=== PATIENT | female | born 1955 | race Caucasian/White ===

== ENCOUNTER 2017-02-07 11:43 | Day surgery (SDC) | payer BC ==
[~2017-02-07 11:43] MED LIST: Bupivacaine 0.25%/EPINEPHrine 1:200,000 10 ML SDV INJECT ONE; Bupivacaine 0.25%/EPINEPHrine 1:200,000 10 ML SDV ONE; Lactated Ringers 1,000 ML IV SCH; ceFAZolin 2 GM in Premix Bag 1 BAG IV ONE
[2017-02-07] MEDS ORDERED: Ondansetron 4 MG/2 ML SDV ONE (11:58)
[2017-02-07] MEDS ORDERED: Lidocaine 2% 5 ML SDV ONE (11:58)
[2017-02-07] MEDS ORDERED: Midazolam 1 MG/ML 2 ML SDV ONE (11:59)
[2017-02-07] MEDS ORDERED: Propofol 200 MG/20 ML SDV ONE (11:59)
[2017-02-07] MEDS ORDERED: fentaNYL 250 MCG/5 ML SDV ONE (11:59)
[2017-02-07] MEDS ORDERED: ceFAZolin 1 GM Vial ONE (12:03)
--- NOTE | 2017-02-07 12:05 | PCM.PREANE ---
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) Type of Anesthesia Reaction: Excessive Nausea/Vomiting Other Type of Anesthesia Reaction Comment: Reports SIck post knee procedure, otherwise no problems Transfusion History: No Prior Transfusion(s) - Review of Systems General: No Symptoms Pulmonary: No Symptoms Cardiovascular: No Symptoms Gastrointestinal: No symptoms Neurological: No Symptoms Other: Reports: None - Physical Assessment NPO Status Date: 02/06/17 O2 Sat by Pulse Oximetry: 97 Respiratory Rate: 16 Vital Signs: Last Vital Signs Temp 36.1 C 02/07/17 11:55 Pulse 66 02/07/17 11:55 Resp 16 02/07/17 11:55 BP 138/83 02/07/17 11:55 Pulse Ox 97 02/07/17 11:55 Height: 1.73 m Weight: 90.718 kg ASA Class: 2 Mental Status: Alert & Oriented x3 Dentition: Reports: Normal Dentition ROM/Head Extension: Full Lungs: Clear to auscultation, Normal respiratory effort Cardiovascular: Regular Rate, Regular Rhythm - Allergies Allergies/Adverse Reactions: Allergies Allergy/AdvReac Type Severity Reaction Status Date / Time No Known Allergies Allergy Verified 07/28/14 17:17 - Anesthesia Plan Pre-Op Medication Ordered: None - Acknowledgements Anesthesia Type Planned: General Anesthesia Pt an Appropriate Candidate for the Planned Anesthesia: Yes Alternatives and Risks of Anesthesia Discussed w Pt/Guardian: Yes Pt/Guardian Understands and Agrees with Anesthesia Plan: Yes PreAnesthesia Questionnaire HEENT History: Reports: Other (see below) Other HEENT History: wears glasses Cardiovascular History: Reports: High cholesterol Gastrointestinal History: Reports: Colon polyp 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: Musculoskeletal History: Reports: Arthritis Endocrine/Metabolic History: Reports: Hypothyroidism, Obesity/BMI 30+ - Past Surgical History Head Surgeries/Procedures: Reports: None GI Surgical History: Reports: Colonoscopy Musculoskeletal Surgical History: Reports: Knee replacement Other Musculoskeletal Surgeries/Procedures:: left knee replacement - SUBSTANCE USE Smoking Status *Q: Former Smoker Tobacco Use Within Last Twelve Months: No Days Per Week of Alcohol Use: 0 Recreational Drug Use History: No - HOME MEDS Home Medications: Home Meds FLUoxetine HCl [Fluoxetine HCl] 40 mg PO DAILY 07/28/14 [History] Levothyroxine Sodium [Synthroid] 75 mcg PO BRK 07/28/14 [History] atorvaSTATin Calcium [Atorvastatin Calcium] 1 tab PO DAILY 07/28/14 [History] Fish Oil/Corrigan-3 Fatty Acids [Fish Oil 1,000 MG] 1 tab PO DAILY 02/05/17 [ History] Tolterodine [Detrol LA 24 Hr] 4 mg PO DAILY 02/05/17 [History] Ubidecarenone [Coq-10] 200 mg PO DAILY 02/05/17 [History] - CURRENT (IN HOUSE) MEDS Current Meds: Current Medications Lactated Ringer's (Ringers, Lactated) 1,000 mls @ 125 mls/hr IV ASDIRECTED ANIL Last Admin: 02/07/17 11:57 Dose: 125 mls/hr Discontinued Medications Bupivacaine HCl/Epinephrine Bitart (Marcaine 0.25%/Epinephrine 1:200,000) 10 ml INJECT ONETIME ONE Stop: 02/07/17 11:01 Bupivacaine HCl/Epinephrine Bitart (Marcaine 0.25%/Epinephrine 1:200,000) Confirm Administered Dose 20 ml .ROUTE .STK-MED ONE Stop: 02/07/17 07:36 Fentanyl (Sublimaze) Confirm Administered Dose 250 mcg .ROUTE .STK-MED ONE Stop: 02/07/17 12:00 Cefazolin Sodium/Dextrose 2 gm (/ Premix) 50 mls @ 100 mls/hr IV ONETIME ONE Stop: 02/07/17 11:29 Lidocaine (Xylocaine-Mpf 2%) Confirm Administered Dose 5 ml .ROUTE .STK-MED ONE Stop: 02/07/17 11:59 Midazolam HCl (Versed 1 Mg/Ml) Confirm Administered Dose 2 mg .ROUTE .STK-MED ONE Stop: 02/07/17 12:00 Ondansetron HCl (Zofran) Confirm Administered Dose 4 mg .ROUTE .STK-MED ONE Stop: 02/07/17 11:59 Propofol (Diprivan 20 Ml) Confirm Administered Dose 200 mg .ROUTE .STK-MED ONE Stop: 02/07/17 12:00
[2017-02-07] MEDS ORDERED: Scopolamine 1.5 MG Transdermal Patch TRDERM PRN (12:57)
[2017-02-07] MEDS ORDERED: Scopolamine 1.5 MG Transdermal Patch ONE (13:01)
[2017-02-07] MEDS ORDERED: diphenhydrAMINE 50 MG/ML SDV ONE (14:17)
[2017-02-07] MEDS ORDERED: Dexamethasone 4 MG/ML 5 ML MDV ONE (14:17)
[2017-02-07] MEDS ORDERED: Phenylephrine/Normal Saline 100 MCG/ML 10 ML Syringe ONE (14:26)
[2017-02-07] MEDS ORDERED: fentaNYL 100 MCG/2 ML SDV IVPUSH PRN (14:29)
--- NOTE | 2017-02-07 15:43 | PCM.POSTAN ---
POST ANESTHESIA ASSESSMENT - MENTAL STATUS Mental Status: alert, oriented - RESPIRATORY Respiratory Status: respiratory rate WNL, airway patent - CARDIOVASCULAR CV Status: pulse rate WNL, blood pressure stable - GASTROINTESTINAL GI Status: no symptoms - POST OP HYDRATION Hydration Status: adequate & stable
--- NOTE | 2017-02-07 15:43 | PCM48HPAN ---
Post Anesthesia Note - EVALUATION WITHIN 48HRS OF ANESTHETIC Vital Signs in Normal Range: Yes Patient Participated in Evaluation: Yes Respiratory Function Stable: Yes Airway Patent: Yes Cardiovascular Function Stable: Yes Hydration Status Stable: Yes Pain Control Satisfactory: Yes Nausea and Vomiting Control Satisfactory: Yes Mental Status Recovered: Yes
[2017-02-07 16:02] VITALS: BP 128/74
--- NOTE | 2017-02-11 08:18 | PCM.OPNOTE ---
- General Post-Op/Procedure Note Date of Surgery/Procedure: 02/07/17 Operative Procedure(s): excision of right volar wrist ganglion Pre Op Diagnosis: right volar wrist ganglion Post-Op Diagnosis: Same Anesthesia Technique: General LMA, Local Primary Surgeon: Beatriz Chaudhari Onboarding Specialist: Morelia Duenas Complications: None Condition: Good Free Text/Narrative:: [id number]
--- NOTE | 2017-02-11 12:16 | OR ---
SURGEON: MAHENDRA TAVAREZ MD DATE OF PROCEDURE: 02/07/2017 PREOPERATIVE DIAGNOSIS: Right volar wrist ganglion. POSTOPERATIVE DIAGNOSIS: Right volar wrist ganglion. PROCEDURE: Excision of right volar wrist ganglion. POWER GENERATION PLANT OPERATOR: Morelia Duenas PA-C. ANESTHESIA: General LMA. INDICATIONS: Ms. Barnes is a 61-year-old female with a right volar wrist ganglion. Risks and benefits of excision were discussed with her and she was in agreement to proceed. Risks were including, but not limited to, bleeding, infection, damage to underlying or overlying structures, possible need for future interventions and possible scarring. She was in agreement to proceed. She recently attempted rupture of the cyst traumatically, but it reaccumulated. PROCEDURE IN DETAIL: After informed consent was obtained and placed on the chart, the patient was brought to the operating theater and laid in the supine position. After adequate general LMA anesthesia was obtained, the area was anesthetized. Time- out was completed to confirm side and site, and the arm was exsanguinated and tourniquet was inflated to 200 mmHg. Once completed, attention was then paid to dissection over the right volar wrist ganglion. There was significant inflammation from the recent rupture and the ganglion cyst had multilobular involvement with reaccumulation of the cyst itself. Dissection was carried circumferentially around the cyst and the radial artery was identified. A significant branch of the radial artery was involved with the inflammatory process and had blood into the cyst some. This made dissection quite difficult. Dissection was carried and the branch was transected in the dissection due to the significant involvement. This was suture ligated. Once the complete excision had been confirmed and sent for pathology, the area was copiously irrigated. The communication with the joint had been ligated, cauterized, and repaired using a 4-0 Monocryl suture as well. The tourniquet was desufflated to ensure meticulous hemostasis. The wound was then closed with a deep 4-0 Monocryl stitch in a running 4-0 subcuticular for the skin. Once adequately removed and repaired, excellent capillary refill to the hand was ensured and the arm was placed in a short-arm wrist cock-up splint. The patient tolerated this well. All counts of needles were correct at the end of the case. FOLLOWUP INSTRUCTIONS: The patient will see us in clinic in approximately 2 weeks, sooner if any problems, questions, or concerns. She was given a prescription for pain control. HEGGTHE / VITA /[id number] MTDD
== END 2017-02-07 16:06 | disposition home or self-care (01) ==
LOC: MW.SDS 11:43
PROVIDERS: ATTEND Plastic Surgery
PROC: 0LB50ZZ Excision of Right Lower Arm and Wrist Tendon, Open Approach (ICD-10-PCS; principal; 2017-02-07)
DX: M67.431 Ganglion, right wrist (principal); M17.10 Unilateral primary osteoarthritis, unspecified knee; F32.9 Major depressive disorder, single episode, unspecified; E78.00 Pure hypercholesterolemia, unspecified; E03.9 Hypothyroidism, unspecified; Z86.010 Personal history of colon polyps; Z87.891 Personal history of nicotine dependence; Z96.652 Presence of left artificial knee joint; Z98.890 Other specified postprocedural states; Z79.899 Other long term (current) drug therapy
CPT/HCPCS: 25111; A9270; J0690; J1100; J1200; J2250; J2405; J3010; J7120; 01810; 88304; J2704

== ENCOUNTER 2025-02-02 06:41 | Day surgery (SDC) | payer MEDICARE, OTHER ==
[~2025-02-02 06:41] MED LIST changes: +Bupivacaine 0.25% 10 ML SDV ONE; +Bupivacaine 0.25% 30 ML SDV ONE; -Bupivacaine 0.25%/EPINEPHrine 1:200,000 10 ML SDV INJECT ONE; -Bupivacaine 0.25%/EPINEPHrine 1:200,000 10 ML SDV ONE; -Lactated Ringers 1,000 ML IV SCH; -ceFAZolin 2 GM in Premix Bag 1 BAG IV ONE
[2025-02-02] MEDS ORDERED: Lidocaine 2% 5 ML SDV ONE ×2 (06:47→06:50)
[2025-02-02] MEDS ORDERED: Midazolam 1 MG/ML 2 ML SDV ONE (06:47)
[2025-02-02] MEDS ORDERED: Dexamethasone 4 MG/ML 5 ML MDV ONE (06:49)
[2025-02-02] MEDS ORDERED: Ondansetron 4 MG/2 ML SDV ONE (06:49)
[2025-02-02] MEDS ORDERED: Rocuronium Bromide 50 MG/5 ML Syringe ONE (06:49)
[2025-02-02] MEDS ORDERED: fentaNYL 100 MCG/2 ML SDV ONE (06:49)
[2025-02-02] MEDS ORDERED: Propofol 200 MG/20 ML SDV ONE (06:49)
[2025-02-02] MEDS ORDERED: ceFAZolin 2 GM Vial ONE (06:50)
[2025-02-02] MEDS ORDERED: Sodium Chloride 0.9% 40 ML ONE (06:50)
[2025-02-02] MEDS ORDERED: dexmedeTOMIDine HCl 200 MCG/2 ML SDV ONE (06:50)
[2025-02-02] MEDS: Lactated Ringers 1,000 ML IV SCH (06:59)
[2025-02-02] MEDS ORDERED: Bupivacaine 0.25% 30 ML SDV ONE (07:01)
[2025-02-02] MEDS ORDERED: Glycopyrrolate 0.2 MG/ML SDV ONE (07:53)
[2025-02-02] MEDS ORDERED: ceFAZolin 2 GM in Sodium Chloride 0.9% 50 ML IV ONE (08:00)
[2025-02-02] MEDS ORDERED: Metoclopramide 10 MG/2 ML SDV IVPUSH PRN (08:13)
[2025-02-02] MEDS ORDERED: fentaNYL 50 MCG/ML SDV IVPUSH PRN (08:13)
[2025-02-02] MEDS ORDERED: Albuterol 0.083% 2.5 MG/3 ML Neb Soln NEB PRN (08:13)
[2025-02-02] MEDS ORDERED: Ondansetron 4 MG/2 ML SDV IVPUSH PRN (08:13)
[2025-02-02] MEDS ORDERED: Morphine 2 MG/ML SYRINGE IVPUSH PRN (08:13)
[2025-02-02] MEDS ORDERED: Naloxone 0.4 MG/ML SDV IVPUSH PRN (08:13)
[2025-02-02] MEDS ORDERED: Phenylephrine HCl In 0.9% NaCl 1 MG/10 ML Syringe IVPUSH PRN (08:13)
[2025-02-02] MEDS ORDERED: HYDROmorphone 1 MG/ML Syringe IVPUSH PRN (08:13)
[2025-02-02] MEDS ORDERED: Sugammadex Sodium 200 MG/2 ML VIAL IV ONE (08:21)
[2025-02-02 12:07] VITALS: BP 101/53; PULSE 62
== END 2025-02-02 12:00 | disposition home or self-care (01) ==
LOC: MW.SDS 06:41
PROVIDERS: ATTEND Orthopaedic Surgery
DX: S86.012A Strain of left Achilles tendon, initial encounter (principal); E03.9 Hypothyroidism, unspecified; E78.00 Pure hypercholesterolemia, unspecified; Z79.899 Other long term (current) drug therapy; Z79.890 Hormone replacement therapy
CPT/HCPCS: 27650; 76000; C1776; J0665; J0690; J1100; J1596; J2003; J2250; J2704; J3010; J7120; 01472; 64447; 99100; J2405; J3490